=== PATIENT | female | born 1945 | race Caucasian/White ===

== ENCOUNTER 2017-05-02 10:09 | Day surgery (SDC) | payer OTHER, MEDICARE ==
[~2017-05-02] VITALS: Ht 170.2 cm; Wt 52.2 kg
[~2017-05-02 10:09] MED LIST: BENTYL10 MG PO; REVIA50 MG PO; SYNTHROID25 MCG PO; XALATAN2.5 ML BOTH EYES; XANAX0.25 MG PO
== END 2017-05-02 13:03 | disposition home or self-care (01) ==
LOC: PAIN 10:09 → SDC 11:30 → PAIN 13:03
PROC: BR161ZZ Fluoroscopy of Lumbar Facet Joint(s) using Low Osmolar Contrast (ICD-10-PCS; principal; 2017-05-02)
PROC: 3E0T3TZ Introduction of Destructive Agent into Peripheral Nerves and Plexi, Percutaneous Approach (ICD-10-PCS; principal; 2017-05-02)
DX: M47.816 Spondylosis without myelopathy or radiculopathy, lumbar region (principal); M54.5 Low back pain; G89.29 Other chronic pain; M41.9 Scoliosis, unspecified; M21.70 Unequal limb length (acquired), unspecified site; R06.3 Periodic breathing; Z87.891 Personal history of nicotine dependence
CPT/HCPCS: J1030; J2250; J3010; S0020

== ENCOUNTER 2017-05-09 07:49 | Day surgery (SDC) | payer OTHER, MEDICARE ==
[~2017-05-09] VITALS: Ht 170.2 cm; Wt 52.2 kg
[2017-05-09 08:24] LABS: POINT-OF-CARE METER ID UU14174212
== END 2017-05-09 09:38 | disposition home or self-care (01) ==
LOC: PAIN 07:49 → SDC 08:30 → PAIN 09:38
PROVIDERS: Anesthesiology Pain Medicine
DX: M47.816 Spondylosis without myelopathy or radiculopathy, lumbar region (principal); M54.5 Low back pain; G89.29 Other chronic pain; E06.3 Autoimmune thyroiditis; M81.0 Age-related osteoporosis without current pathological fracture; Z87.891 Personal history of nicotine dependence; M41.9 Scoliosis, unspecified
CPT/HCPCS: 82948; J1030; J2250; J3010; S0020